=== PATIENT | female | born 1985 | race Caucasian/White ===

== ENCOUNTER 2023-10-06 11:47 | Day surgery (SDC) | payer BC ==
[2023-10-04 12:43] LABS: BILIRUBIN,URINE NEGATIVE (Neg); CLARITY,URINE CLEAR (Clear); COLOR,URINE YELLOW (Yellow); GLUCOSE, URINE NEGATIVE (Neg); KETONES,URINE NEGATIVE (Neg); LEUKOCYTE ESTERASE ,URINE NEGATIVE (Neg); NITRITES, URINE NEGATIVE (Neg); OCCULT BLOOD,URINE NEGATIVE (Neg); PROTEIN,URINE NEGATIVE (Neg); UROBILINOGEN,URINE 0.2 E.U/dL (0.2-1.0)
[2023-10-04 12:53] LABS: BASOPHILS % (AUTO) 0.4 % (0-1); EOSINOPHILS # (AUTO) 0.6 X10'3 (0-0.9); EOSINOPHILS % (AUTO) 5.8 % (0-6); LYMPHOCYTES # (AUTO) 1.9 X10'3 (1.1-4.8); LYMPHOCYTES % (AUTO) 18.1 % (21-51); MEAN CORPUSCULAR HEMOGLOBIN 30.7 PG (27.0-31.0); MEAN CORPUSCULAR HGB CONC 33.9 g/dL (33.0-36.5); MEAN CORPUSCULAR VOLUME 90.6 FL (78-98); MEAN PLATELET VOLUME 8.7 FL (7.4-10.4); MONOCYTES # (AUTO) 0.8 X10'3 (0-0.9); MONOCYTES % (AUTO) 7.4 % (2-12); NEUTROPHILS % (AUTO) 68.3 % (42-75); PRE OP HEMATOCRIT 40.7 % (35.0-45.0); PRE OP HEMOGLOBIN 13.8 g/dL (12.0-16.0); PRE OP PLATELET COUNT 258 X10'3 (140-440); PRE OP WHITE BLOOD COUNT 10.3 10'3 (4.8-10.8); RED BLOOD COUNT 4.49 X10'6 (4.20-5.60); RED CELL DISTRIBUTION WIDTH 12.7 % (11.5-14.5)
[2023-10-04 13:00] LABS: PRE OP PROTIME 10.7 SECONDS (9.0-12.0)
[2023-10-04 13:04] LABS: UA COLLECTION TYPE CLN CATCH MIDSTREAM
[2023-10-04 13:36] LABS: ALBUMIN/GLOBULIN RATIO 1.1 (1.1-1.5); ALKALINE PHOSPHATASE 63 IU/L (46-116); BLOOD UREA NITROGEN 10 MG/DL (7-18); BUN/CREATININE RATIO 14.3 (10.0-20.0); CALCIUM 8.9 MG/DL (8.5-10.1); CHLORIDE 104 MMOL/L (99-107); PRE OP ALT 21 U/L (30-65); PRE OP ANION GAP 7 (8-16); PRE OP AST 15 U/L (10-37); PRE OP BILIRUB, TOTAL 0.3 MG/DL (0.0-1.0); PRE OP GLUCOSE 92 MG/DL (70-104); PRE OP POTASSIUM 4.1 MMOL/L (3.4-5.1); PRE OP SODIUM 138 MMOL/L (135-145); TOTAL CARBON DIOXIDE 26.7 MMOL/L (24-32); TOTAL PROTEIN 7.7 G/DL (6.4-8.2); eGFR > 90 ML/MIN
[~2023-10-06] VITALS: Ht 162.6 cm; Wt 89.7 kg
[2023-10-06] VITALS (15 sets, daily range): BP systolic 99–143; BP diastolic 71–96; PULSE 58–98; RESP 12–22; TEMP 98; O2SAT 92–99
[~2023-10-06 11:47] MED LIST: BUSP5TAB3 PO; FLUO40CA PO; MVI; cefazolin 2gm/D5W 100mL 100 ML IV ONE; famotidine 20mg tablet PO ONE; ringers solution, lacted 1,000 ML IV SCH
[2023-10-06] MEDS ORDERED: mupirocin 2% ointment 22GM TP ONE (13:30)
[2023-10-06] MEDS ORDERED: midazolam 1 mg/ML 2ml injection ONE (13:37)
[2023-10-06] MEDS ORDERED: fentaNYL /PF 50mcg/ml 5ml ampule ONE (13:44)
[2023-10-06] MEDS ORDERED: BUPIVAcaine 2.5mg/ml inj 50ml vial (contains preservative) ONE (13:47)
[2023-10-06] MEDS ORDERED: BUPIVAcaine/PF 2.5mg/ml (0.25%) 10ml vial ONE (13:47)
[2023-10-06] MEDS ORDERED: BUPIVAcaine 2.5mg/ml inj 50ml vial (contains preservative) IJ ONE (14:53)
[2023-10-06] MEDS ORDERED: bacitracin 15gm ointment TP ONE ×2 (15:28→15:45)
[2023-10-06] MEDS ORDERED: ondansetron/PF 4mg/2ml inj ONE (16:29)
[2023-10-06] MEDS ORDERED: LIDOcaine 1%/PF 5ML 10 MG/ML VIAL ONE (16:29)
[2023-10-06] MEDS ORDERED: dexamethasone sod phosphate 4mg/ml inj. ONE (16:29)
[2023-10-06] MEDS ORDERED: ROPIVAcaine 0.5% (5mg/ml) 30ml vial ONE (16:29)
[2023-10-06] MEDS ORDERED: propofol inj 20 ML IV ONE (16:29)
[2023-10-06] MEDS ORDERED: morphine 10mg/ml inj. ONE (16:48)
[2023-10-06] MEDS ORDERED: ketorolac trometh. 30mg/ml inj. ONE (16:50)
[2023-10-06] MEDS ORDERED: morphine 2 MG/ML inj. syringe IV PRN (17:00)
[2023-10-06] MEDS ORDERED: hydrALAZINE 20mg/ml inj. IV PRN (17:00)
[2023-10-06] MEDS ORDERED: ringers solution, lacted 1,000 ML IV SCH (17:00)
[2023-10-06] MEDS ORDERED: ondansetron/PF 4mg/2ml inj IV PRN (17:00)
[2023-10-06] MEDS ORDERED: labetalol 20mg/4ml (5mg/ml) syringe IV PRN (17:00)
[2023-10-06] MEDS ORDERED: meperidine/PF 25mg/ml syringe IV PRN (17:00)
[2023-10-06] MEDS ORDERED: morphine 4 MG/ML inj SYRINge IV PRN (17:00)
[2023-10-06] MEDS ORDERED: proCHLORperazine 10 MG/2 ml inj IV PRN (17:00)
[2023-10-06] MEDS ORDERED: acetaminophen 1,000mg/100ml IV 100 ML IV ONE (17:00)
[2023-10-06] MEDS ORDERED: HYDROmorphone/PF 0.2 MG/ML SYRINGE IV PRN ×2 (17:00)
[2023-10-06] MEDS ORDERED: aprepitant 40mg capsule PO ONE (19:30)
[2023-10-06] MEDS ORDERED: scopolamine 1MG/72H patch 1 PATCH PATCH.TD.3 TD ONE (19:30)
== END 2023-10-06 20:06 | disposition home or self-care (01) ==
LOC: PAS 11:47
PROVIDERS: ATTEND Podiatrist Foot & Ankle Surgery
DX: M20.11 Hallux valgus (acquired), right foot (principal); M20.12 Hallux valgus (acquired), left foot; F32.A Depression, unspecified; F41.9 Anxiety disorder, unspecified; G89.18 Other acute postprocedural pain; Z87.891 Personal history of nicotine dependence; Z98.890 Other specified postprocedural states; Z79.899 Other long term (current) drug therapy; Z79.01 Long term (current) use of anticoagulants; R10.2 Pelvic and perineal pain
CPT/HCPCS: 28297; 36415; 64445; 64447; 73620; 80053; 81003; 82948; 84702; 85025; 85610; 85730; 93005; A6222; C1713; J0131; J0690; J0780; J1100; J1885; J2250; J2274; J2405; J2704; J2795; J3010; J3490; J7030; J7120; J8501; Z7506; Z7508; Z7512; 76000; A4215; A4618; A6253; A6446; A6449; A6455; A7000

== ENCOUNTER 2024-03-14 06:39 | Day surgery (SDC) | payer BC ==
[2024-03-09 10:48] LABS: BILIRUBIN,URINE NEGATIVE (Neg); CLARITY,URINE CLEAR (Clear); COLOR,URINE YELLOW (Yellow); GLUCOSE, URINE NEGATIVE (Neg); KETONES,URINE NEGATIVE (Neg); LEUKOCYTE ESTERASE ,URINE NEGATIVE (Neg); NITRITES, URINE NEGATIVE (Neg); OCCULT BLOOD,URINE NEGATIVE (Neg); PH,URINE 5.5 (4.8-8.0); PROTEIN,URINE NEGATIVE (Neg); UROBILINOGEN,URINE 0.2 E.U/dL (0.2-1.0)
[2024-03-09 10:52] LABS: UA COLLECTION TYPE CLN CATCH MIDSTREAM
[2024-03-09 10:54] LABS: BASOPHILS % (AUTO) 0.6 % (0-1); EOSINOPHILS # (AUTO) 0.3 X10'3 (0-0.9); EOSINOPHILS % (AUTO) 3.9 % (0-6); LYMPHOCYTES # (AUTO) 1.3 X10'3 (1.1-4.8); LYMPHOCYTES % (AUTO) 15.3 % (21-51); MEAN CORPUSCULAR HEMOGLOBIN 30.8 PG (27.0-31.0); MEAN CORPUSCULAR HGB CONC 34.2 g/dL (33.0-36.5); MEAN CORPUSCULAR VOLUME 90.1 FL (78-98); MEAN PLATELET VOLUME 8.6 FL (7.4-10.4); MONOCYTES # (AUTO) 0.8 X10'3 (0-0.9); MONOCYTES % (AUTO) 9.8 % (2-12); NEUTROPHILS % (AUTO) 70.4 % (42-75); PRE OP HEMATOCRIT 40.3 % (35.0-45.0); PRE OP HEMOGLOBIN 13.8 g/dL (12.0-16.0); PRE OP PLATELET COUNT 247 X10'3 (140-440); PRE OP WHITE BLOOD COUNT 8.5 10'3 (4.8-10.8); RED BLOOD COUNT 4.47 X10'6 (4.20-5.60); RED CELL DISTRIBUTION WIDTH 12.9 % (11.5-14.5)
[2024-03-09 10:59] LABS: HCG SERUM QL NEGATIVE
[2024-03-09 11:02] LABS: PRE OP INR 1.1 INR
[2024-03-09 11:07] LABS: ALBUMIN 3.9 G/DL (3.4-5.0); ALKALINE PHOSPHATASE 65 IU/L (46-116); BLOOD UREA NITROGEN 11 MG/DL (7-18); BUN/CREATININE RATIO 18.3 (10.0-20.0); CALCIUM 8.9 MG/DL (8.5-10.1); CHLORIDE 105 MMOL/L (99-107); PRE OP ALT 20 U/L (30-65); PRE OP ANION GAP 8 (8-16); PRE OP AST 14 U/L (10-37); PRE OP BILIRUB, TOTAL 0.4 MG/DL (0.0-1.0); PRE OP GLUCOSE 103 MG/DL (70-104); PRE OP SODIUM 137 MMOL/L (135-145); TOTAL CARBON DIOXIDE 24.5 MMOL/L (24-32); TOTAL PROTEIN 7.9 G/DL (6.4-8.2); eGFR > 90 ML/MIN
[2024-03-14] VITALS (16 sets, daily range): BP systolic 107–124; BP diastolic 63–85; PULSE 72–99; RESP 9–21; TEMP 98.2; O2SAT 95–100
[~2024-03-14] VITALS: Ht 163.8 cm; Wt 95.3 kg
[2024-03-14] MEDS: cefazolin 2gm/D5W 100mL 100 ML IV ONE (05:30)
[~2024-03-14 06:39] MED LIST changes: +CRANBERRY PO; +MULT-1085 PO; -MVI; -cefazolin 2gm/D5W 100mL 100 ML IV ONE
[2024-03-14] MEDS ORDERED: bacitracin 15gm ointment TP ONE (07:18)
[2024-03-14] MEDS ORDERED: BUPIVAcaine/PF 2.5mg/ml (0.25%) 10ml vial ONE (07:22)
[2024-03-14] MEDS ORDERED: ROPIVAcaine 0.5% (5mg/ml) 30ml vial ONE (08:19)
[2024-03-14] MEDS ORDERED: fentaNYL/PF 50MCG/1 ML 2ML syringe ONE (08:19)
[2024-03-14] MEDS ORDERED: midazolam 1 mg/ML 2ml injection ONE (08:19)
[2024-03-14] MEDS ORDERED: propofol inj 20 ML IV ONE (08:20)
[2024-03-14] MEDS ORDERED: dexamethasone sod phosphate 4mg/ml inj. ONE (08:20)
[2024-03-14] MEDS ORDERED: LIDOcaine 2% (20mg/ml) 5ml vial ONE (08:20)
[2024-03-14] MEDS ORDERED: ondansetron/PF 4mg/2ml inj ONE (08:20)
[2024-03-14] MEDS ORDERED: fentaNYL/PF 50MCG/1 ML 2ML syringe IV PRN ×2 (08:25)
[2024-03-14] MEDS ORDERED: ondansetron/PF 4mg/2ml inj IV PRN (08:25)
[2024-03-14] MEDS ORDERED: morphine 2 MG/ML inj. syringe IV PRN (08:25)
[2024-03-14] MEDS ORDERED: hydrALAZINE 20mg/ml inj. IV PRN (08:25)
[2024-03-14] MEDS ORDERED: ringers solution, lacted 1,000 ML IV SCH (08:25)
[2024-03-14] MEDS ORDERED: labetalol 20mg/4ml (5mg/ml) syringe IV PRN (08:25)
[2024-03-14] MEDS ORDERED: morphine 4 MG/ML inj SYRINge IV PRN (08:25)
[2024-03-14] MEDS ORDERED: sevoflurane 250ml liquid IH ONE (08:31)
[2024-03-14] MEDS ORDERED: acetaminophen 1,000mg/100ml IV 100 ML IV ONE (08:47)
[2024-03-14] MEDS ORDERED: ePHEDrine 50MG/ML INJ. ONE (09:17)
[2024-03-14] MEDS ORDERED: morphine 10mg/ml inj. ONE (09:49)
[2024-03-14] MEDS: oxyCODONE/APAP 10/325mg tablet PO ONE (12:00)
== END 2024-03-14 12:16 | disposition home or self-care (01) ==
LOC: PAS 06:39
PROVIDERS: ATTEND Podiatrist Foot & Ankle Surgery
DX: T84.84XA Pain due to internal orthopedic prosthetic devices, implants and grafts, initial encounter (principal); M20.11 Hallux valgus (acquired), right foot; F41.9 Anxiety disorder, unspecified; F32.A Depression, unspecified; I20.9 Angina pectoris, unspecified; Z79.899 Other long term (current) drug therapy; Z98.890 Other specified postprocedural states; X58.XXXA Exposure to other specified factors, initial encounter; Y93.89 Activity, other specified; Y92.89 Other specified places as the place of occurrence of the external cause; Y99.8 Other external cause status
CPT/HCPCS: 20680; 28299; 36415; 73620; 80053; 81003; 82948; 84703; 85025; 85610; 85730; J0131; J0690; J1100; J2250; J2274; J2405; J2704; J2795; J3010; J3490; J7120; Z7512; A4618; A6253; A6446; A6449; A6455; A7000; C1713

== ENCOUNTER 2025-05-29 15:07 | Outpatient (CLI) | payer BC ==
[~2025-05-29 15:07] MED LIST changes: -famotidine 20mg tablet PO ONE; -ringers solution, lacted 1,000 ML IV SCH
--- NOTE | 2025-05-29 15:59 | RADIOLOGY REPORT ---
DI FOOT, COMPLETE (3VW MIN), INDICATION: S/P FUSION GREAT TOE JOINT TECHNICAL DATA: Frontal, oblique and lateral views were obtained of the right foot. COMPARISON: DI FOOT,LIMITED (AP/LAT) on DOS: 03/14/24, DI FOOT,LIMITED (AP/LAT) on DOS: 10/06/23 FINDINGS: Post surgical changes from 1st metatarsal osteotomy with fusion hardware of the first MTP joint, whic h appears intact. Joint spaces are otherwise maintained. Alignment is near anatomic. Soft tissues a re within normal limits. IMPRESSION: Post surgical changes from 1st metatarsal osteotomy with fusion hardware of the first MTP joint, whic h appears intact.
== END 2025-05-29 23:59 | disposition home or self-care (01) ==
LOC: RAD 15:07
PROVIDERS: ATTEND Podiatrist Foot & Ankle Surgery
DX: Q70.21 Fused toes, right foot (principal); Z98.890 Other specified postprocedural states
CPT/HCPCS: 73630

== ENCOUNTER 2025-09-17 09:17 | Day surgery (SDC) | payer BC ==
[2025-09-11 11:03] LABS: LEUKOCYTE ESTERASE ,URINE NEGATIVE (Neg); NITRITES, URINE NEGATIVE (Neg); OCCULT BLOOD,URINE NEGATIVE (Neg)
[2025-09-11 11:16] LABS: UA COLLECTION TYPE VOIDED
[2025-09-11 11:17] LABS: MEAN PLATELET VOLUME 8.5 FL (7.4-10.4); PRE OP HEMATOCRIT 40.1 % (35.0-45.0); PRE OP HEMOGLOBIN 13.6 g/dL (12.0-16.0); PRE OP PLATELET COUNT 294 X10'3 (140-440); PRE OP WHITE BLOOD COUNT 8.3 10'3 (4.8-10.8); RED CELL DISTRIBUTION WIDTH 13.7 % (11.5-14.5)
[2025-09-11 11:23] LABS: CREATININE 0.66 MG/DL (0.40-0.90); PRE OP ALT 21 U/L (30-65); PRE OP ANION GAP 8 (8-16); PRE OP AST 13 U/L (10-37); PRE OP BILIRUB, TOTAL 0.3 MG/DL (0.0-1.0); PRE OP GLUCOSE 90 MG/DL (70-104); PRE OP POTASSIUM 3.9 MMOL/L (3.4-5.1); PRE OP SODIUM 141 MMOL/L (135-145); TOTAL CARBON DIOXIDE 27.8 MMOL/L (24-32); eGFR > 90 ML/MIN
[2025-09-11 11:33] LABS: HCG SERUM QL NEGATIVE
[2025-09-11 11:36] LABS: PRE OP INR 1.1 INR; PRE OP PARTIAL THROMB. TIME 28.0 SECONDS (22-32); PRE OP PROTIME 10.8 SECONDS (9.0-12.0)
[2025-09-17] VITALS (9 sets, daily range): BP systolic 88–112; BP diastolic 51–72; PULSE 53–77; RESP 11–16; TEMP 97.9; O2SAT 98–100
[~2025-09-17] VITALS: Ht 162.6 cm; Wt 104.0 kg
[~2025-09-17 09:17] MED LIST changes: +BUPIVAcaine 2.5mg/ml inj 50ml vial (contains preservative) ONE; +BUPR-726 PO; -CRANBERRY PO; -FLUO40CA PO; +HYDR-3717 PO; +LEVO7.5T7 PO; +ringers solution, lacted 1,000 ML IV SCH
[2025-09-17] MEDS: ceFAZolin 2gm/dext,iso 50mL 50 ML IV ONE (09:37)
[2025-09-17] MEDS ORDERED: fentaNYL/PF 50MCG/1 ML 2ML syringe ONE (11:13)
[2025-09-17] MEDS ORDERED: midazolam 1 mg/ML 2ml injection ONE (11:14)
[2025-09-17] MEDS ORDERED: acetaminophen 1,000mg/100ml IV 100 ML IV ONE (11:21)
[2025-09-17] MEDS ORDERED: LIDOcaine 1%/PF 5ML 10 MG/ML VIAL ONE (11:23)
[2025-09-17] MEDS ORDERED: ondansetron/PF 4mg/2ml inj ONE (11:23)
[2025-09-17] MEDS ORDERED: propofol inj 20 ML IV ONE (11:23)
[2025-09-17] MEDS ORDERED: ROPIVAcaine 0.5% (5mg/ml) 30ml vial ONE (11:23)
[2025-09-17] MEDS ORDERED: fentaNYL/PF 50MCG/1 ML 2ML syringe IV PRN ×2 (11:45)
[2025-09-17] MEDS ORDERED: ondansetron/PF 4mg/2ml inj IV PRN (11:45)
[2025-09-17] MEDS ORDERED: ringers solution, lacted 1,000 ML IV SCH (11:45)
[2025-09-17] MEDS ORDERED: hydrALAZINE 20mg/ml inj. IV PRN (11:45)
--- NOTE | 2025-09-17 11:48 | ANESTHESIA RECORDS ---
Nerve Block Providers to CC CC: KAIDEN WYLIE DPM ~ Diagnosis: Nerve Block requested by: KAIDEN WYLIE DPM Neuraxial/Peripheral Nerve Block requested for Post-operative analgesia by Physician above DIAGNOSIS: Post-operative pain. (Body Area) Shoulder: [ ] Arm: [ ] Hand: [ ] Hip: [ ] Knee: [ ] Ankle: [ ] Foot: [ RIGHT ] Leg: [ ] Abdomen: [ ] Other: [ ] Post-operative pain expected to be/is inadequately managed by oral or IV medicines. Regional anesthetic expected to facilitate rehabilitation and/or discharge from facility. Other:[ _] Procedure Performed: Ankle Superficial Peroneal: Right Ankle Deep Peroneal: Right Ankle Sural & Sapenous Nerve: Right Time out Done?: Yes Time of Time out: 11:10 Procedure Details: PROCEDURE DETAILS: Risks, benefits and alternatives explained Informed consent obtained, and patient wishes to proceed Conscious sedation with indicated monitors Patient positioned, pertinent anatomy defined, sterile technique used Needle used: [ ] 3 1/8 inch Stimuplex Ultra 22ga [ ] 4 inch Stimuplex Ultra 20ga [ ] 6 inch Stimuplex Ultra 20ga [ ] 6 inch, Quikbloc over the needle catheter set 20ga [ ] 4 inch Quikbloc over the needle catheter set 20ga [X ]Other: [_22G NEEDLE ] Loss of twitch @ [ ]mA [X ] Single Injection [ ] Catheter Ultrasound Guidance Used: [ ] Yes [ ] XNo Attempts:[ 1 ] Medicines injected: [ ]Clonidine Amt:[ ] [ ]Dexamethasone Amt:[_2MG ] [ ]Ropivacaine Amt:[____0.5% 30 C.C ] [ ]Bupivacaine Amt:[ ] [ ]Lidocaine Amt:[ ] [ ]Exparel 1.33%:[ ] [ ]Epinephrine Amt[ ] [ ]Other: [ ] Intermittent aspiration during local anesthetic administration No symptoms of intraneural or intravenous injection Patient tolerated procedure well Comments RT AN[facility] [place], nerve bundle pisitions identified and infiltrated. TOMAS MUNOZ MD Sep 17, 2025 11:48
[2025-09-17] MEDS ORDERED: bacitracin 15gm ointment TP ONE (11:50)
[2025-09-17] MEDS: bacitracin 15gm ointment TP ONE (11:51)
--- NOTE | 2025-09-17 12:55 | OPERATIVE REPORT ---
DATE OF SURGERY: 09/17/2025 DICTATING PHYSICIAN: Erick Meza DPM SURGEON: Erick Meza DPM PREOPERATIVE DIAGNOSES: * Painful deep implants, right foot. * Scar tissue of skin with contracture of the scar tissue along the first metatarsophalangeal joint causing pain. POSTOPERATIVE DIAGNOSES: * Painful deep implants, right foot. * Scar tissue of skin with contracture of the scar tissue along the right hallux causing pain. PROCEDURES: * Removal of deep implants, right foot. * V-to-Y skinplasty procedure of the right foot. ANESTHESIA: General. The patient was also given an ankle block preoperatively. The tourniquet was used at 250 mmHg. It was deflated at 9 minutes' time. COMPLICATIONS: None. Capillary refill time was noted to be instantaneous upon completion of the surgery. C-arm was used on the surgery to confirm that all the hardware was removed. ESTIMATED BLOOD LOSS: Less than 5 mL. DESCRIPTION OF PROCEDURE: The procedure was as follows: The patient was disclosed to the operating room suite where she was prepared and draped. An additional ChloraPrep prepping was done by the surgeon. The outermost layer of gloves were removed and a new pair of gloves were applied for the surgeon. The tourniquet was inflated to 250 mmHg after exsanguinating the right lower extremity. A skin incision was made along the dorsum of the right foot to remove the deep implants consisting of a bone staple and a dorsal plate with 4 screws. Complications- none. The bone staple was also removed without any complication. A V-to-Y skinplasty was performed along the scar tissue along the dorsal aspect of the right hallux of the right foot. This helped to relieve the tension on the scar tissue and allow for the toe to relieve the previous dorsal contracture position. The area was then irrigated with copious amounts of sterile saline. The tissues were closed in layers. The tourniquet was deflated. Capillary refill time was noted to be instantaneous. Upon completion of the procedure, the appropriate postoperative dressing was applied and the patient was then escorted to PACU with the appropriate postoperative structures. Erick Meza DPM TID: [id number] RECEIPT: [id number] /REZA MTDD
== END 2025-09-17 13:14 | disposition home or self-care (01) ==
LOC: PAS 09:17
PROVIDERS: ATTEND Podiatrist Foot & Ankle Surgery
DX: T84.84XA Pain due to internal orthopedic prosthetic devices, implants and grafts, initial encounter (principal); M79.674 Pain in right toe(s); F41.9 Anxiety disorder, unspecified; F32.A Depression, unspecified; G89.18 Other acute postprocedural pain; I49.9 Cardiac arrhythmia, unspecified; L90.5 Scar conditions and fibrosis of skin; R73.09 Other abnormal glucose; Y82.8 Other medical devices associated with adverse incidents
CPT/HCPCS: 14040; 20680; 36415; 73620; 80053; 81003; 82948; 84703; 85025; 85610; 85730; A6222; A6258; J0131; J0690; J2250; J2405; J2704; J2795; J3010; J3490; J7030; J7120; Z7506; Z7508; Z7512; 76000; A4215; A4618; A6253; A6446; A6449; A6455; A7000